=== PATIENT | male | born 1940 | race Caucasian/White ===

== ENCOUNTER 2016-07-30 22:34 | Emergency (ER) | payer OTHER ==
[~2016-07-30] VITALS: Ht 167.6 cm; Wt 68.0 kg
[~2016-07-30 22:34] MED LIST: HUMALOG; HYDR-2852; INSU100S22; SIMV40TA1 PO; TIMOLOL 0.5% EYE DROPS
[2016-07-30 22:40] VITALS: BP 132/88
--- NOTE | 2016-07-30 22:44 | NUR ---
Note undone in EDM - 07/30/16 at 2259 by CHRIS PT IS 75/M BIBA C/O LOW BLOOD SUGAR 69 MG/DL,ORAL GLUCOSE WAS GIVEN ENROUTE. PT STATES MED HX OF DM AND HTN. SON IS AT BEDSIDE. DENIES N/V/D; SKIN IS PINK/WARM/DRY; AAOX4 WITH EVEN AND STEADY GAIT; LUNGS CLEAR BL; HR EVEN AND REGULAR; PT DENIES ANY FEVER, CP, SOB, OR COUGH AT THIS TIME; PATIENT STATES PAIN OF 0/10 AT THIS TIME; VSS; PATIENT POSITIONED FOR COMFORT; HOB ELEVATED; BEDRAILS UP X2; BED DOWN. ER MD MADE AWARE OF PT STATUS.
--- NOTE | 2016-07-30 22:44 | NUR ---
PT IS 75/M BIBA C/O LOW BLOOD SUGAR 69 MG/DL,ORAL GLUCOSE WAS GIVEN ENROUTE. PT STATES MED HX OF DM AND HTN. SON IS AT BEDSIDE. DENIES N/V/D; SKIN IS PINK/WARM/DRY; AAOX4 WITH EVEN AND STEADY GAIT; LUNGS CLEAR BL; HR EVEN AND REGULAR; PT DENIES ANY FEVER, CP, SOB, OR COUGH AT THIS TIME; PATIENT STATES PAIN OF 0/10 AT THIS TIME; VSS. ER MD MADE AWARE OF PT STATUS.
[2016-07-30 23:00] VITALS: BP 128/86
--- NOTE | 2016-07-30 23:00 | NUR ---
Patient discharged with v/s stable. Written and verbal after care instructions given and explained. Patient alert, oriented and verbalized understanding of instructions. Ambulatory with steady gait. All questions addressed prior to discharge. ID band removed. Patient advised to follow up with PMD. NO Rx WERE given. Patient educated on indication of medication including possible reaction and side effects. Opportunity to ask questions provided and answered. PT ACCOMPANIED BY SON. HOFFMAN WAS GIVEN PER ER MD.
== END 2016-07-30 23:00 | disposition home or self-care (01) ==
LOC: MED 22:34
DX: E11.649 Type 2 diabetes mellitus with hypoglycemia without coma (principal); Z79.4 Long term (current) use of insulin; I10 Essential (primary) hypertension
CPT/HCPCS: 99283

== ENCOUNTER 2019-04-26 10:11 | Inpatient (IN) | payer OTHER ==
[~2019-04-26] VITALS: Ht 165.1 cm; Wt 77.1 kg
[2019-04-26 10:23] VITALS: BP 112/64
--- NOTE | 2019-04-26 10:29 | NUR ---
PATIENT AMBULATED WITH ASSISTANCE TO BED 6.
--- NOTE | 2019-04-26 10:35 | NUR ---
BIB SON FROM HOME C/O COUGH X 2 WEEKS. O2 SAT 87% RA. SEEN BY PCP LAST SUNDAY- XRAY WAS CLEAR. PMH- DM, HTN, HIGH CHOLESTEROL, GLAUCOMA. DENIES N/V/D.AAOX4 WITH EVEN AND UNSTEADY GAIT; LUNGS CLEAR BL; HR EVEN AND REGULAR. PATIENT STATES PAIN OF 0/10 AT THIS TIME; VSS; PATIENT POSITIONED FOR COMFORT; HOB ELEVATED; BEDRAILS UP X2; BED DOWN. ER MD MADE AWARE OF PT STATUS.
[2019-04-26] MEDS ORDERED: ALBUTEROL SULFATE/IPRATROPIU 3 ML SOL IH ONE (10:45)
[2019-04-26] MEDS ORDERED: NACL 0.9% 1,000 ML IV ONE ×2 (10:45→12:05)
[2019-04-26] MEDS ORDERED: PROMETH/CODEINE 6.25-10MG/5ML 5 ML UDC PO ONE (10:45)
--- NOTE | 2019-04-26 10:54 | NUR ---
RT AT BEDSIDE FOR RESPIRATORY INTERVENTION.
[2019-04-26] MEDS: IBUPROFEN 400 MG TAB PO ONE ×3 (11:00→11:17)
--- NOTE | 2019-04-26 11:06 | NUR ---
HOLD MOTRIN AT THIS TIME. PER DR REYES.
[2019-04-26] MEDS ORDERED: methylPREDNISolone SS 125 MG/2 ML VIAL IVP ONE (11:10)
[2019-04-26] MEDS ORDERED: ALBUTEROL 0.083% 2.5 MG/3 ML NEBU INH ONE (11:10)
--- NOTE | 2019-04-26 11:14 | NUR ---
PETRAW UP [facility] THERAPY AND RESPIRTATORY DRUGS GIVEN TOP HAT BODY MAKER TO MONITOR CARDIAC RATE Addendum: 04/26/19 at 1120 by MCAEMILYA FOLORRAINEW = FOLLOW
[2019-04-26 11:21] LABS: ALBUMIN 2.3 g/dL (3.4-5.0); ANION GAP 8.6 (8-16); ASPARTATE AMINOTRANSFERASE 170 U/L (15-37); CARBON DIOXIDE 34.3 mmol/L (21-32); CHLORIDE 92 mmol/L (98-107); CREATININE 1.3 mg/dL (0.7-1.3); GLUCOSE 194 mg/dL (74-106); SODIUM SERUM 132 mmol/L (136-145); TOTAL BILIRUBIN 1.2 mg/dL (0.0-1.0); UREA NITROGEN, BLOOD 23 mg/dL (7-18)
[2019-04-26 11:26] LABS: POTASSIUM 2.9 mmol/L (3.5-5.1)
[2019-04-26] MEDS ORDERED: POTASSIUM CHLORIDE 10 MEQ TABER PO ONE (11:40)
[2019-04-26] MEDS ORDERED: LEVOFLOXACIN 500 MG/D5W PREMIX 100 ML IV ONE (12:05)
[2019-04-26] MEDS ORDERED: NIAC500T6 PO (12:06)
[2019-04-26] MEDS ORDERED: CEPH250C16 PO (12:06)
[2019-04-26] MEDS ORDERED: HYDR-39 PO (12:06)
[2019-04-26] MEDS ORDERED: ASPI-1718 PO (12:06)
--- NOTE | 2019-04-26 12:26 | NUR ---
gK easley in ED - 04/26/19 at 1227 by [facility] T00.3, MOTRIN GIVEN AT THIS TIME.
--- NOTE | 2019-04-26 12:27 | NUR ---
T100.3, MOTRIN GIVEN AT THIS TIME.
[2019-04-26 12:34] LABS: BASOPHILS # (AUTO) 0.1 K/uL (0.00-0.22); BASOPHILS % (AUTO) 0.6 % (0.0-2.0); EOSINOPHILS % (AUTO) 0.1 % (0.0-4.0); HEMATOCRIT 40.4 % (36-52); HEMOGLOBIN 12.9 g/dL (12.0-18.0); LYMPHOCYTES # (AUTO) 2.3 K/uL (2.0-11.5); LYMPHOCYTES % (AUTO) 20.1 % (20.5-51.1); MEAN CORPUSCULAR HEMOGLOBIN 25 pg (27-31); MEAN CORPUSCULAR HGB CONC 32 g/dL (33-37); MONOCYTES # (AUTO) 1.2 K/uL (0.8-1.0); MONOCYTES % (AUTO) 10.3 % (1.7-9.3); NEUTROPHILS # (AUTO) 8.1 K/uL (1.8-7.7); NEUTROPHILS % (AUTO) 68.9 % (42.2-75.2); PLATELET COUNT (AUTO) 513 K/uL (140-450); RED BLOOD CELL COUNT(AUTO) 5.12 MIL/uL (4.20-6.10); RED CELL DISTRIBUTION WIDTH 15.5 % (11.6-13.7); WHITE BLOOD COUNT (AUTO) 11.7 K/uL (4.8-10.8)
--- NOTE | 2019-04-26 12:38 | NUR ---
PT IS UNABLE TO PROVIDE URINE AT THIS TIME.
[2019-04-26 13:02] VITALS: BP 120/49
--- NOTE | 2019-04-26 13:02 | NUR ---
Pt admitted to room 111B from ED via wheelchair. Pt amb to bed with steady gait. Report received from ED nurse Julieta. Pt aaox4, speaks mongolian. Son Josep at bedside for translation per pt request. Right AC IV 20G intact with ongoing Levaquin. O2 @ 5Lpm via n/c. Pt oriented to room & unit, verbalized understanding. Call light within reach.
--- NOTE | 2019-04-26 13:02 | NUR ---
Patient will be admitted to care of DR GALINDO. Admited to TELE. Will go to room 111B. Belongings list completed. Report to MELANIE CH.
[2019-04-26] MEDS ORDERED: ACETAMINOPHEN 325 MG TAB PO PRN (14:35)
[2019-04-26] MEDS: NACL 0.45% 1,000 ML IV SCH (14:35)
[2019-04-26] MEDS ORDERED: DEXTROSE 50% 50 ML SYR IVP PRN (14:35)
[2019-04-26 15:34] LABS: ANION GAP 13.3 (8-16); CHLORIDE 95 mmol/L (98-107); CREATININE 1.3 mg/dL (0.7-1.3); GLUCOSE 262 mg/dL (74-106); POTASSIUM 3.3 mmol/L (3.5-5.1); SODIUM SERUM 132 mmol/L (136-145); UREA NITROGEN, BLOOD 22 mg/dL (7-18)
[2019-04-26 16:00] VITALS: BP 105/47
[2019-04-26] MEDS: INSULIN LANTUS 100 UNITS/ML 10 ML VIAL SUBQ SCH (16:56)
[2019-04-26] MEDS: INSULIN LISPRO SLIDING SCALE 100 UNITS/ML VIAL SUBQ PRN ×2 (16:56→22:08)
[2019-04-26] MEDS: BLOOD GLUCOSE MONITORING 1 DEV DEV FS SCH ×2 (16:57→21:56)
[2019-04-26] MEDS ORDERED: POTASSIUM CHLORIDE 10 MEQ TABER PO SCH (18:00)
--- NOTE | 2019-04-26 19:30 | NUR ---
Report given to pm nurse Camelia.
--- NOTE | 2019-04-26 19:32 | NUR ---
RECEIVED PT FROM BEN RN PT IS AAOX4 AMBULATES WITH INDUSTRIAL ILLUMINATING ENGINEER IV ON RT ARM INFUSING WELL, RELATIVES AT BED SIDE NOT DISTRESS NOTED INITIAL ASSESSMENT DONE
[2019-04-26 20:00] VITALS: BP 118/62
[2019-04-26 20:27] LABS: APPEARANCE,URINE SL CLOUDY (CLEAR); BILIRUBIN,URINE NEGATIVE (NEGATIVE); BLOOD, URINE TRACE-I (NEGATIVE); LEUKOCYTE ESTERASE ,URINE NEGATIVE (NEGATIVE); NITRITE, URINE NEGATIVE (NEGATIVE); PH,URINE 5.5 (5.0-9.0); UGLUCOSE 3+ (NEGATIVE)
[2019-04-26 20:32] LABS: COLOR,URINE YELLOW (YELLOW)
[2019-04-26 20:52] LABS: RBC,URINE 0-5 /HPF (0-5); WBC,URINE NONE SEEN /HPF (0-5)
[2019-04-26] MEDS ORDERED: INSULIN LANTUS 100 UNITS/ML 10 ML VIAL SUBQ SCH (21:00)
[2019-04-26] MEDS ORDERED: NIACIN 500 MG TAB PO SCH (21:00)
--- NOTE | 2019-04-26 21:30 | NUR ---
BLOOD SUGAR TEST 375 PT AND FAMILY REFUSED TO GET HUMALOG SUBQ THEY SAID THAT PT ALREADY HAD A LONG ACTIN INSULIN AND BS WILL BE MONITORING
[2019-04-26] MEDS ORDERED: CEFEPIME 1,000 MG VIAL ONE (22:00)
[2019-04-26] MEDS: CEFEPIME 1,000 MG in DEXTROSE 5% 50 ML IV SCH (22:00)
[2019-04-26] MEDS ORDERED: XALOS OP (23:47)
[2019-04-27] VITALS: BP 118/60
--- NOTE | 2019-04-27 | NUR ---
PT BLOOD SUGAR [id number] PT ANS FAMILY REFUSED HUMALOG THEY SAID WAIT FOR THE MORNING TEST BEDAUSE HE ALREAFY HAD THE LONG ACTING INSULIN
[2019-04-27 04:00] VITALS: BP 116/50
--- NOTE | 2019-04-27 04:00 | NUR ---
SPONGE BATH GIVEN LINEN CHANGED PT AMBULATES TO THE RESTROOM NOT DISTRESS NOTED RESP THERAPY IS HERE AND GIVE BREATHING TX
[2019-04-27 06:20] LABS: BASOPHILS # (AUTO) 0.1 K/uL (0.00-0.22); BASOPHILS % (AUTO) 0.5 % (0.0-2.0); HEMATOCRIT 36.1 % (36-52); HEMOGLOBIN 11.6 g/dL (12.0-18.0); LYMPHOCYTES # (AUTO) 1.9 K/uL (2.0-11.5); LYMPHOCYTES % (AUTO) 11.6 % (20.5-51.1); MEAN CORPUSCULAR HEMOGLOBIN 25 pg (27-31); MEAN CORPUSCULAR HGB CONC 32 g/dL (33-37); MEAN CORPUSCULAR VOLUME 78.6 fL (80-94); MONOCYTES # (AUTO) 0.8 K/uL (0.8-1.0); MONOCYTES % (AUTO) 5.1 % (1.7-9.3); NEUTROPHILS # (AUTO) 13.1 K/uL (1.8-7.7); NEUTROPHILS % (AUTO) 82.8 % (42.2-75.2); PLATELET COUNT (AUTO) 502 K/uL (140-450); RED CELL DISTRIBUTION WIDTH 15.5 % (11.6-13.7); WHITE BLOOD COUNT (AUTO) 15.9 K/uL (4.8-10.8)
--- NOTE | 2019-04-27 06:33 | NUR ---
PATIENT HAS BEEN SCREENED AND CATEGORIZED MODERATE NUTRITION RISK. PATIENT WILL BE SEEN WITHIN 3-5 DAYS OF ADMISSION. 04/29/19-05/01/19 LEON MARIE MS, RDN
[2019-04-27 06:42] LABS: ANION GAP 11.8 (8-16); CARBON DIOXIDE 27.1 mmol/L (21-32); CHLORIDE 98 mmol/L (98-107); CREATININE 1.2 mg/dL (0.7-1.3); GLUCOSE 316 mg/dL (74-106); POTASSIUM 3.9 mmol/L (3.5-5.1); SODIUM SERUM 133 mmol/L (136-145); UREA NITROGEN, BLOOD 25 mg/dL (7-18)
--- NOTE | 2019-04-27 07:10 | NUR ---
PT IS ENDORSED TO MELANIE RN FOR CONTINUE OF CARE
--- NOTE | 2019-04-27 07:11 | NUR ---
Received report from PM nurse. Patient resting in bed. No signs of distress. Right AC IV intact with ongoing IV fluid 1/2NS at 50 mL/hour. Daughters at bed side. Call light within reach.
[2019-04-27] MEDS: INSULIN LANTUS 100 UNITS/ML 10 ML VIAL SUBQ SCH ×2 (07:13→14:41)
[2019-04-27] MEDS: BLOOD GLUCOSE MONITORING 1 DEV DEV FS SCH ×5 (07:13→21:06)
[2019-04-27] MEDS: INSULIN LISPRO SLIDING SCALE 100 UNITS/ML VIAL SUBQ PRN ×2 (07:15→14:41)
[2019-04-27 08:00] VITALS: BP 145/52
[2019-04-27] MEDS: HYDROCHLOROTHIAZIDE 25 MG TAB PO SCH (08:49)
[2019-04-27] MEDS: ASPIRIN 81 MG TAB.CHEW PO SCH (08:49)
[2019-04-27] MEDS: LISINOPRIL 20 MG TAB PO SCH (08:50)
[2019-04-27] MEDS: ENOXAPARIN 40 MG/0.4 ML SYR SUBQ SCH (08:56)
[2019-04-27] MEDS ORDERED: NON-FORMULARY ITEM (Lisinopril/Hydrochlorothiazide (Lisinopril-Hctz 20-25 mg Tab) 1 TAB) PO SCH (09:00)
[2019-04-27] MEDS ORDERED: NIACIN 500 MG TAB PO SCH (09:00)
--- NOTE | 2019-04-27 09:58 | NUR ---
Paged Dr. Handy for cough syrup order per patient request due to intermittent coughing.
[2019-04-27] MEDS: NACL 0.45% 1,000 ML IV SCH (10:54)
[2019-04-27] MEDS: guaiFENesin DM 200/20 MG-10 ML 10 ML UDC PO PRN ×2 (11:21→21:31)
--- NOTE | 2019-04-27 11:40 | NUR ---
Pt fingerstick glucose = 239. Explained to pt & daughter that per humalog sliding scale protocol pt will need 4units coverage. Daughter states that pt usually takes humalog with lantus @ 2pm at home. Educated pt & family re: humalog protocol per dr order, humalog onset/peak/duration & risk of persistent high glucose, verbalized understanding of teaching but cont to refuse insulin at this time. Pt currently asymptomatic. No signs of distress.
[2019-04-27 11:58] VITALS: BP 127/65
[2019-04-27] MEDS ORDERED: LEVOFLOXACIN 500 MG/D5W PREMIX 100 ML IV SCH (12:00)
[2019-04-27 16:00] VITALS: BP 117/60
--- NOTE | 2019-04-27 16:19 | NUR ---
SATURATION 90% ON SUPPLEMENTAL OXYGEN AT 2 LPM VIA NC INCREASED FIO2 TO 3 LPM MELANIE/RN NOTIFIED
[2019-04-27] MEDS: CEFEPIME 1,000 MG in DEXTROSE 5% 50 ML IV SCH (17:33)
[2019-04-27] MEDS ORDERED: VANCOMYCIN PER PHARMACY MC PRN (17:40)
[2019-04-27] MEDS ORDERED: VANCOMYCIN 1,000 MG in DEXTROSE 5% 250 ML IV SCH (18:05)
--- NOTE | 2019-04-27 19:00 | NUR ---
RECEIVED PT FROM BEN CH PT IS AAOX4 AMBULATES TO THE RESTROOM WITH VERTICAL MILL OPERATOR ON TELMETRY SR ON 06 15 LTS VIA NC, FAMILY AT BED SIDE, IV ON RT ARM INFUSIG WELL NOT DISTRESS NOTED AT THIS TIME
[2019-04-27] MEDS ORDERED: PIPERACILLIN/TAZOBACTAM 3.375 GM VIAL IV ONE (19:33)
[2019-04-27] MEDS: PIPERACILLIN/TAZOBACTAM 3.375 GM in DEXTROSE 5% 50 ML IV SCH (19:39)
[2019-04-27 20:00] VITALS: BP 116/72
[2019-04-27] MEDS ORDERED: ALBUTEROL SULFATE/IPRATROPIU 3 ML SOL IH ONE (20:55)
[2019-04-27] MEDS ORDERED: TIMOLOL OP 0.5% 5 ML BTL OP SCH (21:00)
[2019-04-27] MEDS ORDERED: DORZOLAMIDE 2% OP 10 ML BTL OP SCH (21:00)
[2019-04-27] MEDS: methylPREDNISolone SS 40 MG/ML VIAL IVP SCH (21:08)
[2019-04-27] MEDS: [UNRECOGNIZED DRUG - OTHER] PO SCH (21:12)
[2019-04-27] MEDS: LATANOPROST 0.005% OP 2.5 ML BTL OP SCH (21:14)
[2019-04-27] MEDS: SIMVASTATIN 40 MG TAB PO SCH (21:30)
--- NOTE | 2019-04-27 21:30 | NUR ---
BLOOD SUGAR TEST 80 PT EATING HIS HS SNACK ON TELEMETRY SR AND DR PARDO WAS CALL FOR BREATHING TS AND ORDERS TO FOLLOW
--- NOTE | 2019-04-27 22:05 | NUR ---
5970 DR PARDO ORDERED HHNTX FOR PATIENT. HHNTX GIVEN.
[2019-04-27] MEDS ORDERED: VANCOMYCIN 1,000 MG VIAL ONE (22:11)
[2019-04-27] MEDS ORDERED: ALBUTEROL SULFATE/IPRATROPIU 3 ML SOL IH SCH (23:00)
[2019-04-28] VITALS: BP 135/51
[2019-04-28] MEDS: PIPERACILLIN/TAZOBACTAM 3.375 GM in DEXTROSE 5% 50 ML IV SCH ×5 (01:00→23:56)
--- NOTE | 2019-04-28 01:00 | NUR ---
AFTER BREATHING TX PT IS GETTING IMPROVING HIS CONDITION
[2019-04-28] MEDS ORDERED: PIPERACILLIN/TAZOBACTAM 3.375 GM VIAL IV ONE (03:09)
[2019-04-28] MEDS: ALBUTEROL SULFATE/IPRATROPIU 3 ML SOL IH PRN ×2 (03:35→07:27)
--- NOTE | 2019-04-28 03:50 | NUR ---
SPONGE BATH GIVEN , LINEN CHANGED PT IS ASSISTED TO THE RESTROOM VOIDING WEL. PT ON TELE SRL
[2019-04-28 04:00] VITALS: BP 126/53
[2019-04-28] MEDS: methylPREDNISolone SS 40 MG/ML VIAL IVP SCH ×3 (05:13→20:52)
[2019-04-28] MEDS: TIMOLOL OP 0.5% 5 ML BTL OP SCH ×3 (06:19→11:13)
[2019-04-28] MEDS: guaiFENesin DM 200/20 MG-10 ML 10 ML UDC PO PRN ×2 (06:21→21:00)
[2019-04-28] MEDS: NACL 0.45% 1,000 ML IV SCH (06:35)
[2019-04-28] MEDS: DORZOLAMIDE 2% OP 10 ML BTL OP SCH ×2 (06:47→11:13)
[2019-04-28] MEDS: BLOOD GLUCOSE MONITORING 1 DEV DEV FS SCH ×4 (07:03→20:58)
[2019-04-28 07:05] LABS: BASOPHILS % (AUTO) 0.2 % (0.0-2.0); HEMATOCRIT 36.3 % (36-52); HEMOGLOBIN 11.8 g/dL (12.0-18.0); LYMPHOCYTES % (AUTO) 12.1 % (20.5-51.1); MEAN CORPUSCULAR HEMOGLOBIN 26 pg (27-31); MEAN CORPUSCULAR HGB CONC 33 g/dL (33-37); MEAN CORPUSCULAR VOLUME 78.2 fL (80-94); MONOCYTES # (AUTO) 0.5 K/uL (0.8-1.0); MONOCYTES % (AUTO) 3.1 % (1.7-9.3); NEUTROPHILS % (AUTO) 84.6 % (42.2-75.2); PLATELET COUNT (AUTO) 553 K/uL (140-450); RED BLOOD CELL COUNT(AUTO) 4.64 MIL/uL (4.20-6.10); RED CELL DISTRIBUTION WIDTH 15.8 % (11.6-13.7); WHITE BLOOD COUNT (AUTO) 16.5 K/uL (4.8-10.8)
[2019-04-28] MEDS: INSULIN LISPRO SLIDING SCALE 100 UNITS/ML VIAL SUBQ PRN ×3 (07:05→20:58)
[2019-04-28] MEDS: INSULIN LANTUS 100 UNITS/ML 10 ML VIAL SUBQ SCH ×2 (07:07→17:46)
--- NOTE | 2019-04-28 07:13 | NUR ---
WAITING FOR ABD US PT NPO AND BLOOD SUGAR TEST 281 PT WILL BE ENDORSED TO DAY SHIFT NUSE FOR CONTIUE OF CARE
--- NOTE | 2019-04-28 07:20 | NUR ---
RECEIVED BEDSIDE REPORT FROM NIGHTSHIFT NURSE. PT ASLEEP IN BED. RESPONSIVE TO VERBAL AND TACTILE STIMULI. ABLE TO MAKE NEEDS KNOWN. RESPIRATIONS EVEN AND UNLABORED WITH NO SOB OR RESPIRATORY DISTRESS. IV SITE RIGHT AC 20G CLEAN,DRY, AND INTACT. NO COMPLICATIONS NOTED. SAFETY MEASURES IN PLACE. WILL CONTINUE TO MONITOR.
[2019-04-28 07:27] LABS: ANION GAP 13.3 (8-16); ASPARTATE AMINOTRANSFERASE 67 U/L (15-37); CARBON DIOXIDE 27.6 mmol/L (21-32); CHLORIDE 95 mmol/L (98-107); CREATININE 1.2 mg/dL (0.7-1.3); GLUCOSE 304 mg/dL (74-106); POTASSIUM 3.9 mmol/L (3.5-5.1); SODIUM SERUM 132 mmol/L (136-145); TOTAL BILIRUBIN 0.7 mg/dL (0.0-1.0); UREA NITROGEN, BLOOD 20 mg/dL (7-18)
[2019-04-28 08:00] VITALS: BP 141/71
--- NOTE | 2019-04-28 09:15 | NUR ---
PT RESTING IN BED. ABLE TO MAKE NEEDS KNOWN. RESPIRATIONS EVEN AND UNLABORED WITH NO SOB OR RESPIRATORY DISTRESS. SKIN WARM AND DRY TO TOUCH. NO COMPLAINTS OR CONCERNS. SAFETY MEASURES IN PLACE.
[2019-04-28] MEDS: ENOXAPARIN 40 MG/0.4 ML SYR SUBQ SCH (09:46)
[2019-04-28] MEDS: HYDROCHLOROTHIAZIDE 25 MG TAB PO SCH (09:48)
[2019-04-28] MEDS: ASPIRIN 81 MG TAB.CHEW PO SCH (09:48)
[2019-04-28] MEDS: LISINOPRIL 20 MG TAB PO SCH (09:49)
[2019-04-28] MEDS: VANCOMYCIN 500 MG in DEXTROSE 5% 100 ML IV SCH ×2 (11:03→21:02)
[2019-04-28] MEDS: [UNRECOGNIZED DRUG - OTHER] PO SCH ×2 (11:12→20:52)
--- NOTE | 2019-04-28 11:13 | NUR ---
ADMINISTERED MEDICATION PRESCRIBED PER MD ORDER. PT TOLERATED WELL. MEDICATION EDUCATION PERFORMED. PT VERBLIAZED UNDERSTANDING. RESPIRATIONS EVEN AND UNLABORED WITH NO SOB OR RESPIRATORY DISTRESS. SAFETY MEASURES IN PLACE. WILL CONTINUE TO MONITOR.
--- NOTE | 2019-04-28 11:50 | NUR ---
DC PLANNING 78 YRS OLD MALE PT ADMITTED FROM HOME WITH A DX OF PNEUMONIA. PT HAS A HX OF COPD, ASTHMA AND HTN AND DM. ADMINISTERED IV ABX VANCO AND ZOSYN , INITIATED RT PROTOCOL AND SOLU-MEDROL WELL. DC PLAN TO GO HOME WHEN STABLE CM TO FOLLOW Addendum: 04/29/19 at 09 by Martina Ruiz DC PLANNING CONTINUE IV ABX WITH ZOSYN AND VANCO PER ID DR HUDSON. CT OF THE CHEST SHOWED PNEUMONIA , NO PLEURAL EFFUSION DC PLAN TO GO HOME WITH ABX WHEN STABLE. Addendum: 04/30/19 at 09 by [facility] Joseph CM DC PLANNING SURGERY CONSULTED DR JENARO GRIGGS SEEN PATIENT NOT RECOMMENDED NO SURGERY AT THIS TIME , TO F/U OUT PATIENT WBC 18.1 DR GALINDO DECREASED SOLUMEDROL TO 40MG IVP DAILY CM TO FOLLOW Addendum: 05/01/19 at 1106 by Martina Ruiz CM DC PLANNING: WBC TRENDING DOWN 15.5 SOLUMEDROL 40MG IVP DECREASE TO DAILY , DC PLAN STABLE TO GO HOME PER MD ORDER AND FOLLOW UP WITH PCP WITH IN ONE WEEK.
[2019-04-28 12:00] VITALS: BP 148/72
--- NOTE | 2019-04-28 12:14 | NUR ---
HOURLY ROUNDING. PT RESTING IN BED WITH FAMILY AT BEDSIDE. ABLE TO MAKE NEEDS KNOWN. NO COMPLAINTS OR CONCERNS AT THIS TIME. RESPIRATIONS EVEN AND UNLABORED WITH NO SOB OR RESPIRATORY DISTRESS. SKIN WARM AND DRY TO TOUCH. SAFETY MEASURES IN PLACE. WILL CONTINUE TO MONITOR.
--- NOTE | 2019-04-28 12:57 | NUR ---
Lens Block Gauger Assessment/Discharge Plan Name: David Prieto Home Relationship: daughter Pre-Admission Living Arrangements: Lives with Other Other: family Prior ADL Independent Current Home Health Name/Tel: N/A Current DME/02 Name/Tel: blood glucose monitor Current Hospice Name/Tel: N/A Current Dialysis Name/Tel: N/A Healthcare Decision Maker: Patient Advance Directive No Information Taught: Advance Directive Person Taught: Children Patient Teaching Tools: Computer Generated Print Verbal Factors Affecting Learning: None Participation Level: Active Evaluation: Gestures Understanding Verbalizes Understanding Educator: ARANZA Valverde Discipline: Case Mgt/Social Svcs Tentative Discharge Plan Summary: Patient is a 78 year old male, admitted for PNA. Patient speaks Sami. Patient's daughter David speaks Japanese and Sami. Hadoop Administrator Sudeepkwadwochio assisted with translation. Patient lives at home with his family and plans to return home upon discharge. Patient's pcp is Gavin Valdes and his last appointment with pcp was last Sunday04/21/19. He does not have any difficulty filling his prescriptions. Patient has never been at a snf before. David helps patient with transportation, patient does not drive. Patient is self responsible with medical decisions. Patient does not have an existing Advance Directive. Patient denied hx of mental health. Patient also denied alcohol/substance abuse. I provided David with my contact information. Lens Block Gauger and/or Stock Counter will follow up as needed. Signature: ARANZA Valverde Date: Apr 28, 2019
--- NOTE | 2019-04-28 14:18 | NUR ---
PT RESTING IN CHAIR. ABLE TO MAKE NEEDS KNOWN. NO COMPLAINTS OR CONCERNS AT THIS TIME. RESPIRATIONS EVEN AND UNLABORED WITH NO SOB OR RESPIRATORY DISTRESS. SKIN WARM AND DRY TO TOUCH. SAFETY MEASURES IN PLACE. WILL CONTINUE TO MONITOR.
--- NOTE | 2019-04-28 14:57 | NUR ---
PCP Appointment: JAYCEE contacted Luis from Dr. Gavin Calvo's office [phone]. JAYCEE arranged for hospital follow up appointment to be at 0915 on 05/05/2019 @ [address] [address]. Patient's appointment slip was left in chart to be given at discharge. No further needs identified.
[2019-04-28 16:00] VITALS: BP 103/64
--- NOTE | 2019-04-28 17:03 | NUR ---
SPOKE WITH DR GALINDO ON THE PHONE, GAVE HIM REPORT OF THE CXR FROM THIS MORNING, PER DR GALINDO NO DISCHARGE PT TONIGHT BECAUSE OF THE WORSENED CXR.
--- NOTE | 2019-04-28 17:30 | NUR ---
SPOKE WITH DIAN, PHARMACIST, ABOUT PT'S MISED LANTUS DOSE THIS AFTERNOON. PT IS SUPPOSED TO GET 45 UNITS OF LANTUS AT 14:00 EVERY DAY, BUT TODAY THE ORDER DID NOT SHOW UP ON THE EMAR. IT TURNS OUT THAT THERE WAS A MISTAKE IN THE DOCUMENTATION OF YESTERDAY'S LANTUS DOSE. DIAN ADVISED ME TO ADMINISTER THE MISSED LANTUS DOSE A "NON-SCHEDULED" ADMINISTRATION, SO THAT PT STILL GETS HIS LANTUS COVERAGE. 45 UNITS OF LANTUS ADMINISTERED.
--- NOTE | 2019-04-28 17:45 | NUR ---
I CALLED AND NOTIFIED DR VENTURA ABOUT PT'S INCREASED GLUCOSE OF 411. HE TORB'D TO GIVE 10 UNITS OF SUBQ HUMALOG, ALONG WITH THE 45 UNITS OF LANTUS.
--- NOTE | 2019-04-28 19:00 | NUR ---
CHANGED PT'S EYE DROP ADMINISTRATION SCHEDULE PER PT'S HOME SCHEDULE WITH LORA BIGGS Addendum: 04/28/19 at 2000 by Brenda Darden RN DORZOLAMIDE AND TIMOLOL AT 6 AM AND 6 PM Q DAY, AND LATANOPROST AT 21:00 DAILY.
[2019-04-28] MEDS ORDERED: TIMOLOL OP 0.5% 5 ML BTL OP SCH (19:05)
[2019-04-28] MEDS ORDERED: DORZOLAMIDE 2% OP 10 ML BTL OP SCH (19:05)
--- NOTE | 2019-04-28 19:25 | NUR ---
ENDORSED PT TO INFORMATION SYSTEMS SECURITY DEVELOPER NURSE IN STABLE CONDITION. PT'S SON IS VERY STRICT ON PT'S INSULIN SCHEDULE AT HOME. I ENDORSED PT'S HOME INSULIN SCHEDULE TO THE INFORMATION SYSTEMS SECURITY DEVELOPER NURSE, HE WILL PAGE THE MD.
--- NOTE | 2019-04-28 19:26 | NUR ---
RECEIVED BEDSIDE REPORT FROM DAY SHIFT NURSE, EMMANUEL. NO SOB OR ANY RESPIRATORY DISTRESS NOTED. DENIED PAIN AT THIS TIME. SKIN INTACT, WARM AND DRY TO TOUCH. IV SITE ON LAC 22G, PATENT, INTACT AND ASYMPTOMATIC. BOARD UPDATED, ALL SAFETY MEASUREMENT ARE MET. PT AND PT'S SON WANT TO HAVE DIFFERENT SCALE FOR BS. 2 TIMES OF HUMALOG, 7AM AND 2PM, IF BS BETWEEN 81 AND 150, 8UNITS, IF BS ABOVE 150, 11UNITS, WILL DISCUSS WITH . CRISTINA REVIEWED, AND PT VERBALIZED UNDERSTANDING. BED IN LOW POSITION, CALL LIGHT WITHIN REACH.
[2019-04-28 20:00] VITALS: BP 124/56
--- NOTE | 2019-04-28 20:29 | NUR ---
RECEIVED PT ON ROOM AIR WITH AN SP02 0F 93%. COARSE BREATH SOUNDS. PT IN NO RESPIRATORY DISTRESS; PRN TX NOT GIVEN. FAMILY AT BEDSIDE. PT INFORMED TO CALL FOR PRN TX WHEN EXPERIENCING SOB. WILL CONTINUE TO MONITOR PT.
[2019-04-28] MEDS: SIMVASTATIN 40 MG TAB PO SCH (20:52)
--- NOTE | 2019-04-28 21:00 | NUR ---
GIVEN SOLU MEDROL, PT'S OWN CAPSULE-NIACIN, ZOCOR, XALATAN, AND VANCOMYCIN MD ORDERED. PT C/O COUGHING, GIVEN ROBITUSSIN. PT TOLERATED WELL. BS CHECKED, 327, PT REFUSED INSULIN D/T PT HAS OWN SLIDING SCALE AND INSULIN INJECTION TIME. WILL REPORT TO
[2019-04-28] MEDS: LATANOPROST 0.005% OP 2.5 ML BTL OP SCH (21:03)
--- NOTE | 2019-04-28 21:21 | NUR ---
WILL ENDORSE PT'S OWN INSULIN SCALE ISSUE TO DAY SHIFT NURSE CHARGE NURSE, IFTIKHAR ADVISED IT SHOULD BE DONE IN DAY SHIFT.
--- NOTE | 2019-04-28 23:56 | NUR ---
GIVEN ZOSYN MD ORDERED. PT TOLERATED WELL. VS CHECKED, WITHIN PT'S BASELINE. WILL CONTINUE TO MONITOR.
[2019-04-29] VITALS: BP 125/66
[2019-04-29] MEDS: NACL 0.45% 1,000 ML IV SCH (02:35)
--- NOTE | 2019-04-29 02:48 | NUR ---
PT SLEEPING IN BED. NO ACUTE DISTRESS NOTED.
[2019-04-29 04:00] VITALS: BP 136/71
[2019-04-29] MEDS: PIPERACILLIN/TAZOBACTAM 3.375 GM in DEXTROSE 5% 50 ML IV SCH ×3 (05:47→18:05)
[2019-04-29] MEDS: methylPREDNISolone SS 40 MG/ML VIAL IVP SCH ×3 (05:47→21:14)
[2019-04-29] MEDS: TIMOLOL OP 0.5% 5 ML BTL OP SCH ×2 (05:48→18:06)
[2019-04-29] MEDS: DORZOLAMIDE 2% OP 10 ML BTL OP SCH ×2 (05:48→18:06)
--- NOTE | 2019-04-29 05:48 | NUR ---
GIVEN SOLU MEDROL, ZOSYN, TRUSOPT, AND TIMOPTIC MD ORDERED. PT TOLERATED WELL.
[2019-04-29 06:30] LABS: BASOPHILS # (AUTO) 0.1 K/uL (0.00-0.22); BASOPHILS % (AUTO) 0.3 % (0.0-2.0); HEMATOCRIT 37.1 % (36-52); LYMPHOCYTES # (AUTO) 3.2 K/uL (2.0-11.5); LYMPHOCYTES % (AUTO) 17.1 % (20.5-51.1); MEAN CORPUSCULAR HEMOGLOBIN 26 pg (27-31); MEAN CORPUSCULAR HGB CONC 32 g/dL (33-37); MEAN CORPUSCULAR VOLUME 78.8 fL (80-94); MONOCYTES % (AUTO) 5.1 % (1.7-9.3); NEUTROPHILS # (AUTO) 14.4 K/uL (1.8-7.7); NEUTROPHILS % (AUTO) 77.5 % (42.2-75.2); PLATELET COUNT (AUTO) 618 K/uL (140-450); RED BLOOD CELL COUNT(AUTO) 4.71 MIL/uL (4.20-6.10); RED CELL DISTRIBUTION WIDTH 15.6 % (11.6-13.7); WHITE BLOOD COUNT (AUTO) 18.6 K/uL (4.8-10.8)
[2019-04-29] MEDS: BLOOD GLUCOSE MONITORING 1 DEV DEV FS SCH ×4 (06:34→21:32)
[2019-04-29] MEDS: INSULIN LISPRO SLIDING SCALE 100 UNITS/ML VIAL SUBQ PRN ×2 (06:46→12:46)
[2019-04-29] MEDS: INSULIN LANTUS 100 UNITS/ML 10 ML VIAL SUBQ SCH ×2 (06:46→13:14)
--- NOTE | 2019-04-29 06:46 | NUR ---
BS CHECKED, 324, GIVEN LANTUS AND HUMALOG MD ORDERED. PT TOLERATED WELL.
--- NOTE | 2019-04-29 07:15 | NUR ---
RECEIVED REPORT FROM NIGHT NURSE. PT SCHEDULED FOR CHEST CT SCAN. PT OFF UNIT FOR SCAN, PICKED UP RADIOLOGY BY WC. PT ALERT AND ORIENTED X4. PT FAMILY AT BEDSIDE. NO DISTRESS NOTED.
[2019-04-29 07:23] LABS: ANION GAP 11.2 (8-16); CARBON DIOXIDE 29.8 mmol/L (21-32); CHLORIDE 93 mmol/L (98-107); CREATININE 1.3 mg/dL (0.7-1.3); GLUCOSE 341 mg/dL (74-106); SODIUM SERUM 130 mmol/L (136-145); UREA NITROGEN, BLOOD 25 mg/dL (7-18)
[2019-04-29 07:29] LABS: ALBUMIN 2.1 g/dL (3.4-5.0); ASPARTATE AMINOTRANSFERASE 35 U/L (15-37); CARBON DIOXIDE 30.9 mmol/L (21-32); CHLORIDE 93 mmol/L (98-107); CREATININE 1.2 mg/dL (0.7-1.3); GLUCOSE 341 mg/dL (74-106); POTASSIUM 3.9 mmol/L (3.5-5.1); SODIUM SERUM 130 mmol/L (136-145); TOTAL BILIRUBIN 0.6 mg/dL (0.0-1.0); UREA NITROGEN, BLOOD 25 mg/dL (7-18)
[2019-04-29 08:00] VITALS: BP 140/69
--- NOTE | 2019-04-29 08:00 | NUR ---
PT RETURNED FROM RADIOLOGY OF CT SCAN. PT IS SITTING IN THE CHAIR. NO S/S OF DISTRESS NOTED.
--- NOTE | 2019-04-29 08:00 | NUR ---
RECEIVED REPORT FROM DIMA SALAZAR. PATIENT IS FULL CODE, NKA. PATIENT IS AMBULATORY, AAOX4, FAROESE SPEAKING. PATIENT IS ON NASAL CANNULA 2L. IV TO L AC 22G. SKIN IS INTACT. NO SIGNS OF RESPIRATORY DISTRESS. PATIENT IS SITTING UP IN CHAIR AT BEDSIDE. FAMILY MEMBER AT BEDSIDE. WILL REVIEW PLAN OF CARE
[2019-04-29] MEDS: ASPIRIN 81 MG TAB.CHEW PO SCH (09:28)
[2019-04-29] MEDS: HYDROCHLOROTHIAZIDE 25 MG TAB PO SCH (09:28)
[2019-04-29] MEDS: LISINOPRIL 20 MG TAB PO SCH (09:29)
[2019-04-29] MEDS: [UNRECOGNIZED DRUG - OTHER] PO SCH ×2 (09:30→21:16)
[2019-04-29] MEDS: ENOXAPARIN 40 MG/0.4 ML SYR SUBQ SCH (09:31)
[2019-04-29] MEDS: ALBUTEROL SULFATE/IPRATROPIU 3 ML SOL IH PRN ×2 (09:42→14:04)
--- NOTE | 2019-04-29 09:42 | NUR ---
AWAKE AND ALERT SATURATION 89% ON ROOM AIR POST HHN THERAPY PLACED ON SUPPLEMENTAL OXYGEN AT 2 LPM VIA CRIS MORGAN/RN NOTIFIED
[2019-04-29] MEDS: VANCOMYCIN 500 MG in DEXTROSE 5% 100 ML IV SCH (10:00)
--- NOTE | 2019-04-29 10:00 | NUR ---
BEGAN NEXT INFUSION OF VANCOMYCIN. FAMILY MEMBERS AT BEDSIDE. FAMILY MEMBERS ARE ASKING ABOUT PLAN OF CARE. GAVE WHAT INFORMATION I WAS ABLE TO GIVE.
--- NOTE | 2019-04-29 10:45 | NUR ---
PER PATIENTS FAMILY THEY WOULD LIKE HUMALOG PER OUR SLIDING SCALE TO BE GIVEN WITH LANTUS ON SCHEDULED LANTUS DOSE. WILL CONTACT DR GALINDO REGARDING THE MATTER.
[2019-04-29 12:00] VITALS: BP 120/69
--- NOTE | 2019-04-29 12:00 | NUR ---
BEGAN INFUSION OF ZOSYN. FAMILY MEMBERS STILL AT BEDSIDE, CONTINUOUSLY ASKING ABOUT PATIENTS PLAN OF CARE.
--- NOTE | 2019-04-29 12:17 | NUR ---
BLOOD SUGAR OF 448. PATIENTS FAMILY AND PATIENT REFUSE HUMALOG COVERAGE. STILL WAITING FOR CALLBACK FROM DR GALINDO. WILL F/U AND RE-PAGE DR GALINDO
--- NOTE | 2019-04-29 12:48 | NUR ---
PT SITTING UP IN CHAIR AT BEDSIDE. VITALS STABLE. WILL ADMINISTER SCHEDULED LANTUS AT 1300. WAITING FOR CALLBACK FROM DR GALINDO.
--- NOTE | 2019-04-29 13:24 | NUR ---
ADMINISTERED LANTUS 45U. PATIENT IS REQUESTING HUMALOG 20U WELL. INFORMED PATIENT THAT I WILL ASK DOCTOR ONCE HE CALLS BACK.
[2019-04-29] MEDS ORDERED: INSULIN LISPRO 100 UNITS/ML VIAL SUBQ SCH (13:33)
--- NOTE | 2019-04-29 13:41 | NUR ---
ADMINISTERED [address]UMALOG PER DR GALINDO. PATIENT IS EATING LUNCH AT BEDSIDE.
[2019-04-29 16:00] VITALS: BP 105/52
--- NOTE | 2019-04-29 16:18 | NUR ---
BLOOD SUGAR OF 403. PATIENT IS REFUSING HUMALOG AT THIS TIME.
--- NOTE | 2019-04-29 18:07 | NUR ---
HUNG NEXT ZOSYN IVPB AND ADMINISTERED EYE DROPS. NO COMPLAINTS AT THIS TIME FROM PATIENT. WILL ENDORSE TO WRAPPER SELECTOR FOR CONTINUITY OF CARE.
--- NOTE | 2019-04-29 18:44 | NUR ---
PATIENT SITTING UP IN CHAIR AT BEDSIDE, SON IS IN THE ROOM. NO COMPLAINTS AT THIS TIME. ALL NEEDS HAVE BEEN MET. ENDORSING PATIENT TO ASSISTANT DEAN OF STUDENTS NURSE IN STABLE CONDITION.
--- NOTE | 2019-04-29 19:10 | NUR ---
RECEIVED REPORT FROM [facility] RN DAYSHIFT NURSE AT BEDSIDE FOR CONTINUITY OF CARE, PT IN STABLE CONDITION.
--- NOTE | 2019-04-29 19:58 | NUR ---
PT SITTING UP IN CHAIR, NO S/S OF PAIN OR DISTRESS NOTED, RESPIRATIONS EVEN AND UNLABORED. PT HAS IV SITE ON LAC 22G RUNNING 1/2NS AT 50MLS/HR. PT V/S FOLLOWS: T 97.0 P 84 R 18 B/P 113/60 02 92% WITH 2 LITERS VIA N/C.
[2019-04-29 20:00] VITALS: BP 113/60
--- NOTE | 2019-04-29 20:50 | NUR ---
FAMILY AT BEDSIDE. PATIENT EATING DINNER. WILL RETURN AT LATER TIME TO ASSESS. NO RESPIRATORY DISTRESS NOTED. WILL CONTINUE TO MONITOR.
--- NOTE | 2019-04-29 21:00 | NUR ---
[facility], HE SPEAKS [place] AND CITIZEN OF [place] AND [place], FAMILY ALSO AT BEDSIDE TO ASSIST UNDERSTANDING.PT HAS N/C RUNNING AT 2 LITERS RESPIRATIONS ARE EVEN AND UNLABORED. LUNG SOUNDS DIMINISHED WITH CRACKLES/RHONCI AT BASE OF LUNGS. PT HAS NON PRODUCTIVE DRY COUGH. PT GIVEN DUE MEDS AT THIS TIME. MEDICATION EDUCATION PROVIDED AT BEDSIDE, PT VERBALIZED UNDERSTANDING.
[2019-04-29] MEDS: LATANOPROST 0.005% OP 2.5 ML BTL OP SCH (21:15)
[2019-04-29] MEDS: SIMVASTATIN 40 MG TAB PO SCH (21:16)
--- NOTE | 2019-04-29 21:30 | NUR ---
PT FINGERSTICK IS 335. PT DECLINES ANY HUMALOG COVERAGE S/S. PT HAS OWN S/S AND OWN DM2 ROUTINE CARE. PT ROUTINE CARE OF DM2 WAS REVIEWED WITH PT AND FAMILY AT BEDSIDE. PT EATING DINNER POST FINGERSTICK. (PT RECEIVED LANTUS AND HUMALOG ON DAYSHIFT.) WILL RECHECK VALUE LATER PER PT REQUEST.
--- NOTE | 2019-04-29 22:00 | NUR ---
PT GIVEN ORDERED VANCOCIN IVPB ORDERED. PT EDUCATED ON MEDICATION AND SIDE EFFECTS. IV SITE 22G ON LAC INTACT AND ASYMPTOMATIC. AND RUNNING 1/2NS AT 50MLS/HR. PT REQUEST RETAKE OF FINGERSTICK WHICH IS 348. PT ACKNOWLEDGED VALUE, BUT DECLINED ANY HUMALOG COVERAGE. NO S/S OF PAIN OR DISTRESS NOTED. N/C REMAINS AT 2 LITERS RESPIRATIONS EVEN AND UNLABORED. BED LOW AND CALL ROQUE IN REACH.
[2019-04-29] MEDS: VANCOMYCIN 1,000 MG in DEXTROSE 5% 250 ML IV SCH (22:38)
[2019-04-30] VITALS: BP 110/58
--- NOTE | 2019-04-30 00:30 | NUR ---
PT RESTING IN BED WITH EYES CLOSED BUT AROUSABLE TO LIGHT TOUCH AND NAME. IV SITE INTACT AND RUNNING 1/2 NS AT 50MLS/HR. ZOSYN HUNG AND RUNNING AT 100MLS/HR ORDERED. V/S FOLLOWS: T 97.2 P 91 R 18 B/P 110/58 02 91% WITH 2 LITERS VIA N/C. NO S/S OF PAIN OR DISTRESS NOTED.
[2019-04-30] MEDS: PIPERACILLIN/TAZOBACTAM 3.375 GM in DEXTROSE 5% 50 ML IV SCH ×4 (00:48→17:52)
--- NOTE | 2019-04-30 02:00 | NUR ---
PT UP AND ASSISTED TO TOILET, NO C/O VOICED, PT DECLINES NEB TREATMENT. ALL REQUESTED NEEDS ATTENDED.
[2019-04-30 04:00] VITALS: BP 143/76
--- NOTE | 2019-04-30 04:00 | NUR ---
PT IN BED NO S/S OF PAIN OR DISTRESS NOTED. BED LOW AND SIDE RAQILS UP X2. IV SITE INTACT AND RUNNING ORDERED. V/S FOLLOWS: T 97.2 P 100 R 18 B/P 143/76 02 95% WITH 2 LITERS VIA N/C
--- NOTE | 2019-04-30 05:30 | NUR ---
APPO HUNG AND RUNNING ORDERED. PT EYE GTT FOR GLAUCOMA GIVEN.
[2019-04-30] MEDS: methylPREDNISolone SS 40 MG/ML VIAL IVP SCH (06:06)
[2019-04-30] MEDS: NACL 0.45% 1,000 ML IV SCH ×2 (06:08→18:35)
[2019-04-30] MEDS: DORZOLAMIDE 2% OP 10 ML BTL OP SCH ×2 (06:12→18:40)
[2019-04-30] MEDS: TIMOLOL OP 0.5% 5 ML BTL OP SCH ×2 (06:12→18:40)
[2019-04-30] MEDS: BLOOD GLUCOSE MONITORING 1 DEV DEV FS SCH ×4 (06:15→20:30)
[2019-04-30] MEDS: INSULIN LANTUS 100 UNITS/ML 10 ML VIAL SUBQ SCH ×2 (06:44→13:33)
[2019-04-30] MEDS ORDERED: INSULIN LISPRO 100 UNITS/ML VIAL SUBQ SCH ×2 (07:00→14:00)
--- NOTE | 2019-04-30 07:00 | NUR ---
PT FINGERSTICK IS 313. PT INSIST ON GETTING ORDERED LANTUS WITH 20 UNITS OF HUMALOG HE DOES AT HOME. MD GALINDO PAGED, HE CALLED BACK AND SAID IT WAS OK TO GIVE 20 UNITS OF HUMALOG X1 WITH LANTUS IS PT DM COVERAGE ROUTINE, MD GALINDO, WANT S PT TO HAVE A RECHECK IN 1 HR.
[2019-04-30 07:07] LABS: ANION GAP 12.7 (8-16); CARBON DIOXIDE 28.2 mmol/L (21-32); CHLORIDE 93 mmol/L (98-107); CREATININE 1.3 mg/dL (0.7-1.3); GLUCOSE 349 mg/dL (74-106); POTASSIUM 3.9 mmol/L (3.5-5.1); SODIUM SERUM 130 mmol/L (136-145); UREA NITROGEN, BLOOD 28 mg/dL (7-18)
--- NOTE | 2019-04-30 07:20 | NUR ---
RECEIVED REPORT FROM NIGHT NURSE. PT AWAKE SITTING IN CHAIR AT BEDSIDE, DAUGHTER AT BED SIDE WELL. PT AAOX4, DENIES PAIN, NO DISTRESS NOTED. SKIN INTACT. RESPIRATIONS EVEN AND UNLABORED ON O2 2L NC, DIMINISHED BREATH SOUNDS RONCHI AND CRACKLES PRESENT. IV IN PLACE PATENT ASYMPTOMATIC AND INFUSING PER ORDER IN L AC 22G. SAFETY MEASURES IN PLACE. CALL LIGHT WITHIN REACH. WILL CONTINUE TO MONITOR.
--- NOTE | 2019-04-30 07:30 | NUR ---
ENDORSED POC TO [facility] DAYSHIFT NURSE AT BEDSIDE FOR CONTINUITY OF CARE, ENDORSED THE FINGERSTICK RECHECK IN 1 HR.
[2019-04-30 07:51] LABS: HEMATOCRIT 37.3 % (36-52); HEMOGLOBIN 12.1 g/dL (12.0-18.0); MEAN CORPUSCULAR HEMOGLOBIN 26 pg (27-31); MEAN CORPUSCULAR HGB CONC 33 g/dL (33-37); MEAN CORPUSCULAR VOLUME 79.3 fL (80-94); PLATELET COUNT (AUTO) 625 K/uL (140-450); RED CELL DISTRIBUTION WIDTH 15.4 % (11.6-13.7); WHITE BLOOD COUNT (AUTO) 18.2 K/uL (4.8-10.8)
[2019-04-30 08:00] VITALS: BP 114/69
[2019-04-30 09:31] LABS: LYMPHOCYTES % (MANUAL) 20 % (20-46)
[2019-04-30 09:32] LABS: MONOCYTES % (MANUAL) 7 % (5-12)
[2019-04-30] MEDS: ENOXAPARIN 40 MG/0.4 ML SYR SUBQ SCH (09:39)
--- NOTE | 2019-04-30 09:42 | NUR ---
MEDICATIONS ADMINISTERED PER ORDER. PT TOLERATED WELL. NO DISTRESS NOTED. WILL CONTINUE TO MONITOR.
[2019-04-30] MEDS: LISINOPRIL 20 MG TAB PO SCH (09:45)
[2019-04-30] MEDS: HYDROCHLOROTHIAZIDE 25 MG TAB PO SCH (09:47)
[2019-04-30] MEDS: ASPIRIN 81 MG TAB.CHEW PO SCH (09:47)
[2019-04-30] MEDS: [UNRECOGNIZED DRUG - OTHER] PO SCH ×2 (09:47→20:39)
[2019-04-30] MEDS: VANCOMYCIN 1,000 MG in DEXTROSE 5% 250 ML IV SCH ×2 (10:55→22:18)
--- NOTE | 2019-04-30 11:32 | NUR ---
VITAL SIGNS TAKEN AT THIS TIME. BLOOD SUGAR CHECKED, NO COVERAGE NEEDED. NO DISTRESS NOTED, PT DENIES PAIN. WILL CONTINUE TO MONITOR.
[2019-04-30 12:00] VITALS: BP 109/53
--- NOTE | 2019-04-30 14:00 | NUR ---
MEDICATIONS ADMINISTERED PER ORDER. PT TOLERATED WELL. NO DISTRESS NOTED. WILL CONTINUE TO MONITOR.
[2019-04-30 16:00] VITALS: BP 105/58
--- NOTE | 2019-04-30 16:30 | NUR ---
BLOOD GLUCOSE MONITORED AT THIS TIME. READING IS 198, PT REFUSED HUMALOG SLIDING SCALE. WILL CONTINUE TO MONITOR.
--- NOTE | 2019-04-30 18:30 | NUR ---
MEDICATIONS ADMINISTERED PER ORDER. PT TOLERATED WELL. NO DISTRESS NOTED. WILL CONTINUE TO MONITOR.
--- NOTE | 2019-04-30 19:25 | NUR ---
PT ENDORSED TO NIGHT NURSE FOR CONTINUITY OF CARE.
--- NOTE | 2019-04-30 19:27 | NUR ---
RECEIVED PT FROM DAY SHIFT NURSE PT IS AAOX4 AMBULATES TO THE RESTROOM HOLDING IV POLE , ON TELEMETRY SR NOT FEVER, , DENIES ANY PAIN IV ;ON LEFT AC INFUSING WELL, RELATIVES AT BED SIDE INITIAL ASSESSMENT DONE
[2019-04-30 20:00] VITALS: BP 111/52
[2019-04-30] MEDS: guaiFENesin DM 200/20 MG-10 ML 10 ML UDC PO PRN (20:39)
[2019-04-30] MEDS: SIMVASTATIN 40 MG TAB PO SCH (20:40)
[2019-04-30] MEDS: LATANOPROST 0.005% OP 2.5 ML BTL OP SCH (20:41)
--- NOTE | 2019-04-30 21:30 | NUR ---
BLOOD SUGAR TEST 143 , PT ON TEL SR PT STILL COUGHING PRODUCTIVE SOUND BARKING COUGH, RELATIVES AT =BED SIDE .
[2019-05-01] VITALS: BP 127/63
--- NOTE | 2019-05-01 | NUR ---
PT VOIDING WELL DENIES ANY PAIN, IV ON LEFT ARM INFUSING WELL; ;NO;T DISTRESS NOTED
[2019-05-01] MEDS: PIPERACILLIN/TAZOBACTAM 3.375 GM in DEXTROSE 5% 50 ML IV SCH ×3 (00:15→11:33)
[2019-05-01] MEDS: NACL 0.45% 1,000 ML IV SCH (01:09)
[2019-05-01] MEDS: ALBUTEROL SULFATE/IPRATROPIU 3 ML SOL IH PRN (01:10)
[2019-05-01 04:00] VITALS: BP 112/64
--- NOTE | 2019-05-01 04:00 | NUR ---
SPONGE BATH GIVEN LINEN CHANGED, REPOSITIONED NOT DISTRESS NOTED
[2019-05-01] MEDS: TIMOLOL OP 0.5% 5 ML BTL OP SCH (06:01)
[2019-05-01] MEDS: DORZOLAMIDE 2% OP 10 ML BTL OP SCH (06:02)
[2019-05-01] MEDS: INSULIN LANTUS 100 UNITS/ML 10 ML VIAL SUBQ SCH (06:25)
[2019-05-01] MEDS: BLOOD GLUCOSE MONITORING 1 DEV DEV FS SCH ×3 (06:26→17:07)
--- NOTE | 2019-05-01 07:00 | NUR ---
BLOOD SUGARA TEST 72 LANTUS NOT GIVEN AND PT IS ENDORSED TO DAY SHIFT NURSE FOR CONTINUE OF CARE
[2019-05-01 07:15] LABS: BASOPHILS # (AUTO) 0.2 K/uL (0.00-0.22); BASOPHILS % (AUTO) 1.1 % (0.0-2.0); EOSINOPHILS # (AUTO) 0.1 K/uL (0-0.4); EOSINOPHILS % (AUTO) 0.4 % (0.0-4.0); HEMATOCRIT 36.7 % (36-52); HEMOGLOBIN 11.9 g/dL (12.0-18.0); LYMPHOCYTES % (AUTO) 38.6 % (20.5-51.1); MEAN CORPUSCULAR HEMOGLOBIN 26 pg (27-31); MEAN CORPUSCULAR HGB CONC 32 g/dL (33-37); MONOCYTES # (AUTO) 0.9 K/uL (0.8-1.0); MONOCYTES % (AUTO) 5.5 % (1.7-9.3); NEUTROPHILS # (AUTO) 8.5 K/uL (1.8-7.7); NEUTROPHILS % (AUTO) 54.4 % (42.2-75.2); PLATELET COUNT (AUTO) 561 K/uL (140-450); RED BLOOD CELL COUNT(AUTO) 4.65 MIL/uL (4.20-6.10); RED CELL DISTRIBUTION WIDTH 15.7 % (11.6-13.7); WHITE BLOOD COUNT (AUTO) 15.5 K/uL (4.8-10.8)
--- NOTE | 2019-05-01 07:15 | NUR ---
RECEIVED REPORT FROM NIGHT NURSE. PT IN BED WITH EYES CLOSED, AROUSABLE TO SPEECH. NO DISTRESS NOTED, DENIES PAIN. RESPIRATIONS EVEN AND UNLABORED ON O2 2L VIA NC. IV IN PLACE, PATENT AND ASYMPTOMATIC INFUSING PER ORDER. SKIN INTACT. BED IN LOW POSITION, SAFETY MEASURES IN PLACE. CALL LIGHT WITHIN REACH, WILL CONTINUE TO MONITOR.
[2019-05-01 07:18] LABS: ANION GAP 7.4 (8-16); CARBON DIOXIDE 32.2 mmol/L (21-32); CHLORIDE 95 mmol/L (98-107); CREATININE 1.2 mg/dL (0.7-1.3); POTASSIUM 3.6 mmol/L (3.5-5.1); SODIUM SERUM 131 mmol/L (136-145)
[2019-05-01 07:44] LABS: ALBUMIN 2.2 g/dL (3.4-5.0); ASPARTATE AMINOTRANSFERASE 48 U/L (15-37); GLUCOSE 73 mg/dL (74-106); TOTAL BILIRUBIN 0.4 mg/dL (0.0-1.0); UREA NITROGEN, BLOOD 24 mg/dL (7-18)
[2019-05-01 08:00] VITALS: BP 130/64
[2019-05-01] MEDS ORDERED: methylPREDNISolone SS 40 MG/ML VIAL IVP SCH (09:00)
--- NOTE | 2019-05-01 09:27 | NUR ---
MEDICATIONS ADMINISTERED PER ORDER. PT TOLERATED WELL, NO DISTRESS NOTED. DENIES PAIN. WILL CONTINUE TO MONITOR.
[2019-05-01] MEDS: ASPIRIN 81 MG TAB.CHEW PO SCH (09:43)
[2019-05-01] MEDS: [UNRECOGNIZED DRUG - OTHER] PO SCH (09:43)
[2019-05-01] MEDS: HYDROCHLOROTHIAZIDE 25 MG TAB PO SCH (09:43)
[2019-05-01] MEDS: LISINOPRIL 20 MG TAB PO SCH (09:43)
[2019-05-01] MEDS: ENOXAPARIN 40 MG/0.4 ML SYR SUBQ SCH (09:44)
[2019-05-01] MEDS: VANCOMYCIN 1,000 MG in DEXTROSE 5% 250 ML IV SCH (09:44)
--- NOTE | 2019-05-01 11:33 | NUR ---
BLOOD GLUCOSE 313. PT CONTINUES TO REFUSE HOSPITAL HUMALOG SLIDING SCALE AND REQUESTS 58 UNITS OF LANTUS AND 20 UNITS OF HUMALOG AT 1400. WILL CONTACT FOR ORDERS.
[2019-05-01 12:00] VITALS: BP 111/52
--- NOTE | 2019-05-01 12:54 | NUR ---
CALLED DR GALINDO, RECEIVED TORB TO STOP ORDER FOR 45 UNITS OF LANTUS AND TO PLACE ORDER FOR 58 UNITS OF LANTUS AND 20 UNITS OF HUMALOG AT 1400
[2019-05-01] MEDS ORDERED: INSULIN LISPRO 100 UNITS/ML VIAL SUBQ SCH (14:00)
[2019-05-01] MEDS ORDERED: INSULIN LANTUS 100 UNITS/ML 10 ML VIAL SUBQ SCH (14:00)
--- NOTE | 2019-05-01 15:33 | NUR ---
05/01/19 RD INITIAL ASSESSMENT COMPLETED PLEASE REFER TO NUTRITION ASSESSMENT UNDER CARE ACTIVITY FOR ESTIMATED NUTRITIONAL NEEDS. 1. CONTINUE CCHO 60GM DIET TOLERATED 2. ENCOURAGED INCREASING PO INTAKE 3. RD TO FOLLOW-UP 3-5 DAYS, MODERATE RISK AVI FERNANDEZ, RD
--- NOTE | 2019-05-01 17:08 | NUR ---
BLOOD GLUCOSE CHECK 236. PT REFUSED TO RECEIVE HOSPITAL SLIDING SCALE FOR HUMALOG. WILL CONTINUE TO MONITOR.
[2019-05-01 17:11] VITALS: BP 89/50
[2019-05-01] MEDS ORDERED: METH2TAB PO (17:26)
[2019-05-01] MEDS ORDERED: LEVO750T2 PO (17:26)
[2019-05-01] MEDS ORDERED: METH4TAB1 PO (17:29)
--- NOTE | 2019-05-01 19:00 | NUR ---
PT DISCHARGED AT THIS TIME. DISCHARGE, FOLLOWUP AND MEDICATION EDUCATION GIVEN TO PT AND FAMILY MEMBERS, VERBALIZED UNDERSTANDING. PRESCRIPTION AND PCP FOLLOWUP APPOINTMENT GIVEN WITH DISCHARGE PAPERWORK. DISCHARGE PAPERS SIGNED BY DAUGHTER. ID BANDS REMOVED. IV SITE REMOVED WITH MINIMAL BLOOD LOSS AND LUMEN INTACT. BELONGINGS VERIFIED AND RETURNED TO PT. PT REFUSED PNA AND FLU VACCINES. PT ESCORTED OFF UNIT ON FOOT, LEFT HOME IN PRIVATE VEHICLE.
== END 2019-05-01 19:00 | disposition home or self-care (01) | DRG 140 ==
LOC: MED 10:11 → MTU 12:22
PROVIDERS: ADMIT Internal Medicine; ATTEND Internal Medicine
DX: J44.0 Chronic obstructive pulmonary disease with (acute) lower respiratory infection (principal); E43 Unspecified severe protein-calorie malnutrition; J18.9 Pneumonia, unspecified organism; J91.8 Pleural effusion in other conditions classified elsewhere; E11.65 Type 2 diabetes mellitus with hyperglycemia; J44.1 Chronic obstructive pulmonary disease with (acute) exacerbation; K80.20 Calculus of gallbladder without cholecystitis without obstruction; E87.6 Hypokalemia; J98.01 Acute bronchospasm; R74.0 Nonspecific elevation of levels of transaminase and lactic acid dehydrogenase [LDH]; E78.5 Hyperlipidemia, unspecified; I10 Essential (primary) hypertension; Z79.4 Long term (current) use of insulin
CPT/HCPCS: 36415; 71045; 71046; 71250; 76705; 80048; 80053; 80202; 81001; 82948; 83605; 83880; 85025; 86738; 87040; 87070; 87081; 87086; 87205; 87804; 93005; 94640; 96361; 96365; 96375; 99285; J0692; J1650; J1815; J1956; J2543; J2920; J2930; J3370; J7030; J7060; J7613; J7620; Q0092

== ENCOUNTER 2020-11-19 10:20 | Emergency (ER) | payer OTHER ==
[~2020-11-19] VITALS: Ht 157.5 cm; Wt 82.6 kg
[~2020-11-19 10:20] MED LIST changes: +ASPI-1822 PO; +HYDR-39 PO; +LEVO750T2 PO; +METH2TAB PO; +METH4TAB1 PO; +NIAC500T6 PO; +XALOS OP
[2020-11-19 10:45] VITALS: BP 118/61
--- NOTE | 2020-11-19 10:51 | NUR ---
Patient ambulated to bed 04 with son.
--- NOTE | 2020-11-19 10:55 | NUR ---
To restroom for urine sample.
--- NOTE | 2020-11-19 11:12 | NUR ---
DR FORD AT BEDSIDE EVALUATING PATIENT
--- NOTE | 2020-11-19 11:24 | NUR ---
80 Y/O M BIB SON FROM HOME, PATIENT PRESENTS TO ED WITH EPIGASTRIC PAIN FOR 10 DAYS C/O FATIGUE, LOSS OF APPETITE AND STATES THAT "IT FEELS LIKE HEARTBURN". DENIES N/V/D OR CONSTIPATION, LAST BM: NORMAL, SOFT EASY TO PASS THIS AM; SKIN IS PINK/WARM/DRY; AAOX4 WITH EVEN AND STEADY GAIT WITH MINIMAL ASSIST DUE TO PAIN; LUNGS CLEAR BL; HR EVEN AND REGULAR; ABD IS NON TENDER/ROUND/SOFT. PT DENIES ANY FEVER, CP, SOB, OR COUGH AT THIS TIME; PATIENT STATES PAIN OF 7/10 AT THIS TIME; VSS; PATIENT POSITIONED FOR COMFORT; HOB ELEVATED; BEDRAILS UP X2; BED DOWN. ER MD MADE AWARE OF PT STATUS. PMH: DM1, HTN, HLD NKA
--- NOTE | 2020-11-19 11:43 | NUR ---
URINE AND LABS WERE GIVEN TO LAB, NOTIFIED PRECISION DANCER AND WAS TOLD TO TELL PHLEB ON BREAK. NOTIFIED, LEFT ON INJECTION MOLDING PROCESS TECHNICIAN.
--- NOTE | 2020-11-19 11:58 | NUR ---
pt brought back from CT via W/C.
[2020-11-19 12:02] LABS: BASOPHILS % (AUTO) 0.3 % (0.0-2.0); EOSINOPHILS # (AUTO) 0.1 K/uL (0-0.4); EOSINOPHILS % (AUTO) 0.9 % (0.0-4.0); HEMATOCRIT 40.9 % (36-52); HEMOGLOBIN 13.5 g/dL (12.0-18.0); LYMPHOCYTES # (AUTO) 1.4 K/uL (2.0-11.5); LYMPHOCYTES % (AUTO) 16.6 % (20.5-51.1); MEAN CORPUSCULAR HEMOGLOBIN 27 pg (27-31); MEAN CORPUSCULAR HGB CONC 33 g/dL (33-37); MEAN CORPUSCULAR VOLUME 80.7 fL (80-94); MONOCYTES # (AUTO) 0.7 K/uL (0.8-1.0); MONOCYTES % (AUTO) 8.7 % (1.7-9.3); NEUTROPHILS # (AUTO) 6.3 K/uL (1.8-7.7); NEUTROPHILS % (AUTO) 73.5 % (42.2-75.2); PLATELET COUNT (AUTO) 293 K/uL (140-450); RED BLOOD CELL COUNT(AUTO) 5.07 MIL/uL (4.20-6.10); RED CELL DISTRIBUTION WIDTH 17.8 % (11.6-13.7); WHITE BLOOD COUNT (AUTO) 8.6 K/uL (4.8-10.8)
[2020-11-19 12:07] LABS: APPEARANCE,URINE SL CLOUDY (CLEAR); BILIRUBIN,URINE 3+ (NEGATIVE); BLOOD, URINE TRACE-I (NEGATIVE); COLOR,URINE ORANGE (YELLOW); LEUKOCYTE ESTERASE ,URINE TRACE (NEGATIVE); NITRITE, URINE POSITIVE (NEGATIVE); UGLUCOSE TRACE (NEGATIVE)
[2020-11-19 12:10] LABS: ANION GAP 16.3 (8-16); CARBON DIOXIDE 24.6 mmol/L (21-32); CHLORIDE 104 mmol/L (98-107); CREATININE 1.4 mg/dL (0.6-1.3); GLUCOSE 214 mg/dL (74-106); POTASSIUM 3.9 mmol/L (3.5-5.1); SODIUM SERUM 141 mmol/L (136-145); UREA NITROGEN, BLOOD 20 mg/dL (7-18)
[2020-11-19 12:14] LABS: RBC,URINE 0-5 /HPF (0-5); WBC,URINE 0-5 /HPF (0-5)
[2020-11-19 12:16] LABS: ALBUMIN 2.2 g/dL (3.4-5.0); ASPARTATE AMINOTRANSFERASE 133 U/L (15-37); LIPASE 137 U/L (73-393)
--- NOTE | 2020-11-19 12:55 | NUR ---
ULTRASOUND AT BEDSIDE
[2020-11-19] MEDS ORDERED: NITR100C7 PO (13:54)
[2020-11-19] MEDS ORDERED: BEN10 PO (13:54)
[2020-11-19] MEDS ORDERED: ACET-8386 PO (13:54)
[2020-11-19] MEDS ORDERED: MAG-27 PO (13:54)
[2020-11-19 14:19] VITALS: BP 161/87
--- NOTE | 2020-11-19 14:19 | NUR ---
Patient discharged with v/s stable. Written and verbal after care instructions given and explained. Patient alert, oriented and verbalized understanding of instructions. Ambulatory with to car. All questions addressed prior to discharge. ID band removed. Patient advised to follow up with PMD. Rx of HYDROCODONE, DICYCLOMINE, MAG HYDROX, NITROFURANTOIN given. Patient educated on indication of medication including possible reaction and side effects. Opportunity to ask questions provided and answered.
== END 2020-11-19 14:19 | disposition home or self-care (01) ==
LOC: MED 10:20
DX: R10.10 Upper abdominal pain, unspecified (principal); E11.9 Type 2 diabetes mellitus without complications; I10 Essential (primary) hypertension; E78.5 Hyperlipidemia, unspecified; Z79.899 Other long term (current) drug therapy; Z79.4 Long term (current) use of insulin; Z79.82 Long term (current) use of aspirin
CPT/HCPCS: 36415; 76705; 80053; 81001; 83690; 84484; 85025; 93005; 99285